=== PATIENT | female | born 1960 | race Caucasian/White ===

== ENCOUNTER 2023-02-19 15:37 | Emergency (ER) | payer MEDICAID, SELFPAY ==
[2023-02-19 15:37] VITALS: RESP 26; O2SAT 96; O2SAT 98
[2023-02-19 15:39] VITALS: BP 150/95; PULSE 90; RESP 18; TEMP 36.4; O2SAT 97; BMI 34.6
[2023-02-19 15:54] VITALS: O2SAT 98
--- NOTE | 2023-02-19 15:54 | ED.VIS.DYS ---
HPI History of Present Illness Chief Complaint: Shortness of Breath Narrative Narrative: 62-year-old female with history of asthma/COPD presenting shortness of breath x 3 days. She states other than wheezing she is felt otherwise well. No fevers, chills, cough. No chest pain. No nausea or vomiting. He states he was out shopping today for housing for herself and started to feel more short of breath. She states he had not been on steroids for a long time. Patient reports he is no longer smoker and quit about 9 months ago. Denies any known triggers. [facility] Medical History (Updated 02/19/23 @ 16:37 by Susan Dunn) Chronic back pain COPD (chronic obstructive pulmonary disease) CVA (cerebral vascular accident) Diabetes GERD (gastroesophageal reflux disease) Home Medications acetaminophen 325 mg tablet 650 mg PO Q6H 02/19/23 [History Last Taken Unknown] albuterol sulfate 90 mcg/actuation aerosol inhaler 2 inh inhalation Q4H PRN shortness of breath or wheezing 02/19/23 [History Last Taken Unknown] amlodipine 10 mg tablet 10 mg PO DAILY 02/19/23 [History Last Taken Unknown] ammonium lactate 12 % lotion 1 applic topical DAILY PRN dry skin 02/19/23 [History Last Taken Unknown] aspirin 81 mg chewable tablet 1 tab PO DAILY 02/19/23 [History Last Taken Unknown] atorvastatin 40 mg tablet 40 mg PO DAILY 02/19/23 [History Last Taken Unknown] budesonide-formoterol HFA 160 mcg-4.5 mcg/actuation aerosol inhaler 2 inh inhalation BID 02/19/23 [History Last Taken Unknown] calcium carbonate 400 mg calcium (1,000 mg) chewable tablet (Tums Ultra) 400 mg PO Q4H PRN dyspepsia 02/19/23 [History Last Taken Unknown] fluticasone propionate 220 mcg/actuation HFA aerosol inhaler 1 inh inhalation BID PRN dyspnea #12 grams 02/19/23 [Rx Last Taken Unknown] hydralazine 25 mg tablet 25 mg PO TID 02/19/23 [History Last Taken Unknown] ipratropium 0.5 mg-albuterol 3 mg (2.5 mg base)/3 mL nebulization soln 3 ml inhalation Q4H PRN shortness of breath or wheezing 02/19/23 [History Last Taken Unknown] prednisone 50 mg tablet 50 mg PO DAILY #5 tabs 02/19/23 [Rx Last Taken Unknown] Allergy/AdvReac Type Severity Reaction Status Date / Time acetaminophen Allergy Rash Verified 02/19/23 16:27 [From Darvocet-N] aztreonam Allergy Hives Verified 02/19/23 16:27 codeine Allergy Hives Verified 02/19/23 16:27 erythromycin base Allergy Rash Verified 02/19/23 16:27 iodine Allergy Hives Verified 02/19/23 16:27 ketorolac Allergy Hives Verified 02/19/23 16:27 Latex, Natural Rubber Allergy Rash Verified 02/19/23 16:27 Penicillins Allergy Hives Verified 02/19/23 16:27 propoxyphene Allergy Rash Verified 02/19/23 16:27 [From Darvocet-N] Tetracyclines Allergy Rash Verified 02/19/23 16:27 tramadol [From Ultram] Allergy Rash Verified 02/19/23 16:27 Social History (Updated 02/19/23 @ 16:37 by Susan Dunn) household members: none ROS ROS ED Constitutional Constitutional ED: Denies chills, fever(s) or sweats Eyes Eyes: Denies blurry vision or change in vision ENT ENT ED: Denies ear pain or sore throat Cardiovascular Cardiovascular: Denies chest pain, palpitations or racing heartbeat Respiratory/Chest Respiratory/Chest: Reports dyspnea, dyspnea on exertion and other Details: Wheezing ; Denies sputum Gastrointestinal Gastrointestinal: Denies abdominal pain, constipation, diarrhea, nausea or vomiting Genitourinary Genitourinary ED: Denies dysuria, hematuria or urinary frequency Musculoskeletal Musculoskeletal: Denies arthralgias, myalgias or neck pain Integumentary Denies abscess, Abrasions or rash Neurologic Neurologic: Denies headache(s), paresthesias or weakness Psychiatric Psychiatric: Denies anxiety, depression, suicidal ideation or suicidal thoughts Endocrine Endocrinology: Denies polydipsia or polyuria EXAM Physical Exam Const Vital Signs: 02/19/23 15:39 02/19/23 16:06 02/19/23 15:54 Temperature 97.6 F L Temperature Source Temporal Pulse Rate 90 84 Respiratory Rate 18 18 Respiratory Effort Respiratory Pattern Tachypnea Blood Pressure 150/95 H Blood Pressure Mean 113 Pulse Ox 97 98 Oxygen Delivery Method Room Air Room Air Oxygen Flow Rate (L/min) 2 02/19/23 15:37 Temperature Temperature Source Pulse Rate Respiratory Rate Respiratory Effort Short of Breath Respiratory Pattern Blood Pressure Blood Pressure Mean Pulse Ox Oxygen Delivery Method Oxygen Flow Rate (L/min) Positive well nourished General Appearance ED: NAD HEENT Reports moist mucous membranes Eyes PERRL and EOMs intact bilaterally Neck no lymphadenopathy Resp normal respiratory effort Auscultation: wheezes expiratory wheezes Cardio regular rate and regular rhythm Neuro oriented x3 and CN's II-XII intact bilaterally Sensorium / Orientation: alert Psych mental status grossly normal MDM MDM MDM Narrative Medical decision making narrative: Patient presenting with wheezing. She denies chest pain. She denies fever, chills. She is already tested for viral etiologies. Patient was likely has asthma/COPD flare. She is given breathing treatments and prednisone. Patient feeling better on reevaluation after breathing treatments and prednisone. She is ambulated in the hallway maintains O2 sats 92 to 93%. She is requesting an albuterol inhaler for home. I also put her on a prednisone burst. She will follow-up with her PCP to ensure resolution. Return precautions discussed. Impression: 1. COPD exacerbation Lab Data Attestation: I reviewed the patient's lab results. Discharge Plan Triage Chief Complaint: Shortness of Breath ED Provider: Parish Odell Dx/Rx/DC Orders Instructions: ED COPD Flare Prescriptions: New prednisone 50 mg tablet 50 mg PO DAILY Qty: 5 0RF fluticasone propionate 220 mcg/actuation HFA aerosol inhaler 1 inh inhalation BID PRN (Reason: dyspnea) Qty: 12 0RF No Action albuterol sulfate 90 mcg/actuation HFA aerosol inhaler 2 inh inhalation Q4H PRN (Reason: shortness of breath or wheezing) calcium carbonate [Tums Ultra] 400 mg calcium (1,000 mg) tablet,chewable 400 mg PO Q4H PRN (Reason: dyspepsia) hydralazine 25 mg tablet 25 mg PO TID ipratropium-albuterol 0.5 mg-3 mg(2.5 mg base)/3 mL solution for nebulization 3 ml inhalation Q4H PRN (Reason: shortness of breath or wheezing) acetaminophen 325 mg tablet 650 mg PO Q6H amlodipine 10 mg tablet 10 mg PO DAILY ammonium lactate 12 % lotion 1 applic topical DAILY PRN (Reason: dry skin) aspirin 81 mg tablet,chewable 1 tab PO DAILY atorvastatin 40 mg tablet 40 mg PO DAILY budesonide-formoterol 160-4.5 mcg/actuation HFA aerosol inhaler 2 inh inhalation BID Primary Care Provider: Care Physician,No Primary Referrals: Care Physician,No Primary [Primary Care Provider] - Disposition Disposition: Home, Self Care
[2023-02-19] MEDS: Albuterol 2.5 MG/3 ML VIAL.NEB. INHALATION (16:05)
[2023-02-19] MEDS: Ipratropium/Albuterol Sulfate 3 ML AMPUL.NEB INHALATION (16:05)
[2023-02-19 16:06] VITALS: PULSE 84; RESP 18
[2023-02-19] MEDS: predniSONE 20 MG Tablet 60 MG PO (16:22)
[2023-02-19 17:25] VITALS: PULSE 82; RESP 24; O2SAT 93
== END 2023-02-19 17:33 | disposition home or self-care (01) ==
PROVIDERS: Emergency Provider Student in an Organized Health Care Education/Training Program; Visit Provider Student in an Organized Health Care Education/Training Program
DX: J44.1 Chronic obstructive pulmonary disease with (acute) exacerbation (principal); E11.9 Type 2 diabetes mellitus without complications; Z87.891 Personal history of nicotine dependence; Z86.73 Personal history of transient ischemic attack (TIA), and cerebral infarction without residual deficits; Z79.899 Other long term (current) drug therapy; Z79.82 Long term (current) use of aspirin
CPT/HCPCS: 94640; 99284; A4216